=== PATIENT | male | born 1945 | race Caucasian/White ===

== ENCOUNTER 2017-02-25 23:43 | Inpatient (IN) | payer MEDICARE ==
[~2017-02-25] VITALS: Ht 190.5 cm; Wt 93.2 kg
[~2017-02-25 23:43] MED LIST: ASPI-611 PO; ATOR40TA PO; CARV-50 PO; FLUT16SP2 BOTHNARES; LISI2.5T2 PO; MULT-955 PO
[2017-02-26] VITALS (10 sets, daily range): BP systolic 109–123; BP diastolic 44–65
[2017-02-26] MEDS ORDERED: aspirin 81mg tab.chew PO ONE (00:45)
[2017-02-26] MEDS ORDERED: LORazepam 1 MG tablet PO PRN (02:10)
[2017-02-26] MEDS ORDERED: acetaminophen 325mg tablet PO PRN ×2 (02:10)
[2017-02-26] MEDS ORDERED: magnesium hydroxide 30ml (MOM) UD suspension PO PRN (02:10)
[2017-02-26] MEDS ORDERED: LORazepam 2 mg/ml vial IV PRN (02:10)
[2017-02-26] MEDS ORDERED: mag hydrox/Alum hydrox/simeth 30ml oral suspension PO PRN (02:10)
[2017-02-26] MEDS ORDERED: ondansetron/PF 4mg/2ml inj IV PRN (02:10)
[2017-02-26] MEDS ORDERED: thiamine inj. 100 MG in normal saline 100ml IV soln 100 ML IV ONE (02:10)
[2017-02-26] MEDS ORDERED: thiamine 100mg/ml 2ml inj. IV ONE (03:30)
[2017-02-26 07:24] LABS: BASOPHILS % (AUTO) 0.4 % (0-1); EOSINOPHILS # (AUTO) 0.1 X10'3 (0-0.9); EOSINOPHILS % (AUTO) 0.8 % (0-6); HEMATOCRIT 37.3 % (42.0-52.0); HEMOGLOBIN 12.6 g/dl (14.0-17.9); LYMPHOCYTES # (AUTO) 1.5 X10'3 (1.1-4.8); MEAN CORPUSCULAR HEMOGLOBIN 32.1 PG (27.0-31.0); MEAN CORPUSCULAR HGB CONC 33.9 % (33.0-36.5); MEAN CORPUSCULAR VOLUME 94.8 FL (78-98); MONOCYTES # (AUTO) 0.9 X10'3 (0-0.9); MONOCYTES % (AUTO) 11.8 % (2-12); NEUTROPHILS # (AUTO) 5.5 X10'3 (1.8-7.7); PLATELET COUNT 141 X10'3 (140-440); RED BLOOD COUNT 3.93 X10'6 (4.70-6.10); RED CELL DISTRIBUTION WIDTH 12.8 % (11.5-14.5); WHITE BLOOD COUNT 8.1 X10'3 (4.5-11.0)
[2017-02-26 07:46] LABS: ALBUMIN 3.7 G/DL (3.4-5.0); ANION GAP 9 (8-16); BLOOD UREA NITROGEN 23 MG/DL (7-18); BUN/CREATININE RATIO 21.9 (5.4-32.0); CALCIUM 8.6 MG/DL (8.5-10.1); CHLORIDE 104 MMOL/L (99-107); CREATININE 1.05 MG/DL (0.60-1.10); GLUCOSE 74 MG/DL (70-104); POTASSIUM 3.9 MMOL/L (3.5-5.1); SODIUM 142 MMOL/L (135-145); TOTAL CARBON DIOXIDE 28.6 MMOL/L (24-32); eGFR 69 ML/MIN
[2017-02-26] MEDS ORDERED: multivitamins, therapeutics tablet PO SCH (08:00)
[2017-02-26] MEDS ORDERED: folic acid 1mg tablet PO SCH (08:00)
[2017-02-26] MEDS ORDERED: enoxaparin 60mg/0.6ml syringe SUBCUT SCH (08:00)
[2017-02-26] MEDS ORDERED: enoxaparin 30mg/0.3ml syringe SUBCUT SCH (08:00)
[2017-02-26] MEDS ORDERED: enoxaparin 40mg/0.4ml syringe SUBCUT SCH (08:00)
[2017-02-26] MEDS ORDERED: thiamine 100mg tablet PO SCH (08:00)
[2017-02-26] MEDS ORDERED: metoprolol tartrate 1mg/ml inj IV PRN (08:30)
[2017-02-26] MEDS ORDERED: nitroGLYCERIN 0.4mg SUBLingual tab SL PRN (08:30)
[2017-02-26] MEDS ORDERED: aminophylline 250mg/10ml inj. IV PRN (08:30)
[2017-02-26] MEDS ORDERED: regadenoson 0.4mg/5ml syringe IV ONE ×2 (08:30→12:24)
[2017-02-26] MEDS ORDERED: carVEDilol 12.5mg tablet PO SCH ×2 (09:23→20:00)
[2017-02-26] MEDS ORDERED: aminophylline inj. 0 ML IV ONE (12:24)
[2017-02-26] MEDS ORDERED: NITR0.4T51 SL (16:52)
[2017-02-26] MEDS ORDERED: lisinopril 2.5mg tablet PO SCH (21:00)
[2017-02-26] MEDS ORDERED: atorvastatin 20mg tablet PO SCH (21:00)
[2017-02-27] MEDS ORDERED: non-formulary drug (Multivitamin (Daily Value) 1 TAB) PO SCH (08:00)
== END 2017-02-26 17:15 | disposition home or self-care (01) | DRG 291 ==
LOC: ER 23:44 → ED HOLD 02-26 02:07 → PCU 3S 02-26 11:50
PROVIDERS: ADMIT Internal Medicine; ATTEND Family Medicine
PROC: 4A02XM4 Measurement of Cardiac Total Activity, External Approach (ICD-10-PCS; principal; 2017-02-26)
PROC: 3E073KZ Introduction of Other Diagnostic Substance into Coronary Artery, Percutaneous Approach (ICD-10-PCS; 2017-02-26)
DX: I11.0 Hypertensive heart disease with heart failure (principal); J96.01 Acute respiratory failure with hypoxia; E87.2 Acidosis; I24.9 Acute ischemic heart disease, unspecified; I50.23 Acute on chronic systolic (congestive) heart failure; J70.5 Respiratory conditions due to smoke inhalation; T59.811A Toxic effect of smoke, accidental (unintentional), initial encounter; E78.00 Pure hypercholesterolemia, unspecified; E78.5 Hyperlipidemia, unspecified; F17.210 Nicotine dependence, cigarettes, uncomplicated; F10.10 Alcohol abuse, uncomplicated; I25.2 Old myocardial infarction; Z79.899 Other long term (current) drug therapy; Z79.82 Long term (current) use of aspirin; Z85.038 Personal history of other malignant neoplasm of large intestine; Y93.89 Activity, other specified; Y99.8 Other external cause status; Y92.090 Kitchen in other non-institutional residence as the place of occurrence of the external cause; Z71.6 Tobacco abuse counseling
CPT/HCPCS: 36415; 78452; 80048; 83880; 84484; 85025; 93005; 93017; 93306; 99285; A9500; J0280; J1650; J3411

== ENCOUNTER 2017-05-30 20:13 | Inpatient (IN) | payer MEDICARE ==
[~2017-05-30] VITALS: Ht 190.5 cm; Wt 100.0 kg
[~2017-05-30 20:13] MED LIST changes: +NITR0.4T51 SL
[2017-05-30] MEDS ORDERED: methylPREDNISolone sod succ 125mg/2ml vial IV ONE (20:25)
[2017-05-30] MEDS ORDERED: albuterol 2.5 MG/3 ML nebule CONTNEB PRN (20:25)
[2017-05-30] MEDS ORDERED: albuterol 2.5 MG/3 ML nebule ONE (20:27)
[2017-05-30 20:51] LABS: ABG BASE EXCESS -2.3 mmol/L (-2.0-3.0); ABG HCO3 26.4 mmol/L (22.0-26.0); ABG OXYGEN SATURATION 96.6 % (95-98); ABG PCO2 (T) 57.7 mmHg (35.0-48.0); ABG PH (T) 7.269 (7.350-7.450); ABG PO2 (T) 94.6 mmHg (83-108); ALLEN'S TEST Positive; FCOHb 1.5 % (0.5-1.5); FLOW 7 L/min; FMetHb 0.2 % (0.3-1.12); PATIENT TEMPERATURE 35.4; RESPIRATORY RATE (OBSERVED) 20 b/min; TOTAL HEMOGLOBIN 15.2 G/dl (14.0-18.0)
[2017-05-30 20:53] LABS: BASOPHILS % (AUTO) 0.2 % (0-1); EOSINOPHILS # (AUTO) 0.1 X10'3 (0-0.9); EOSINOPHILS % (AUTO) 0.3 % (0-6); HEMATOCRIT 43.5 % (42.0-52.0); HEMOGLOBIN 14.7 g/dl (14.0-17.9); LYMPHOCYTES # (AUTO) 0.9 X10'3 (1.1-4.8); LYMPHOCYTES % (AUTO) 5.8 % (21-51); MEAN CORPUSCULAR HEMOGLOBIN 32.5 PG (27.0-31.0); MEAN CORPUSCULAR HGB CONC 33.8 % (33.0-36.5); MEAN CORPUSCULAR VOLUME 95.9 FL (78-98); MEAN PLATELET VOLUME 8.2 FL (7.4-10.4); MONOCYTES # (AUTO) 0.8 X10'3 (0-0.9); MONOCYTES % (AUTO) 4.9 % (2-12); NEUTROPHILS # (AUTO) 14.4 X10'3 (1.8-7.7); NEUTROPHILS % (AUTO) 88.8 % (42-75); PLATELET COUNT 166 X10'3 (140-440); RED BLOOD COUNT 4.54 X10'6 (4.70-6.10); RED CELL DISTRIBUTION WIDTH 12.7 % (11.5-14.5); WHITE BLOOD COUNT 16.2 X10'3 (4.5-11.0)
[2017-05-30 21:02] LABS: PARTIAL THROMBOPLASTIN TIME 23 SECONDS (22-32); PROTHROMBIN TIME 10.3 SECONDS (9.0-12.0)
[2017-05-30 21:15] LABS: ALANINE AMINOTRANSFERASE 40 U/L (12-78); ALBUMIN 4.1 G/DL (3.4-5.0); ALBUMIN/GLOBULIN RATIO 1.2 (1.1-1.5); ALKALINE PHOSPHATASE 63 IU/L (46-116); ANION GAP 8 (8-16); ASPARTATE AMINO TRANSFERASE 34 U/L (10-37); BILIRUBIN,TOTAL 1.1 MG/DL (0.1-1.0); BLOOD UREA NITROGEN 24 MG/DL (7-18); BUN/CREATININE RATIO 17.9 (5.4-32.0); CHLORIDE 104 MMOL/L (99-107); CREATINE KINASE 175 U/L (39-308); CREATININE 1.34 MG/DL (0.60-1.10); GLUCOSE 147 MG/DL (70-104); MAGNESIUM 2.5 MG/DL (1.5-2.4); PHOSPHORUS 7.8 MG/DL (2.3-4.5); POTASSIUM 5.5 MMOL/L (3.5-5.1); SODIUM 142 MMOL/L (135-145); TOTAL CARBON DIOXIDE 30.4 MMOL/L (24-32); TOTAL PROTEIN 7.4 G/DL (6.4-8.2); eGFR 52 ML/MIN
[2017-05-30 22:26] LABS: ALBUMIN 3.9 G/DL (3.4-5.0); ANION GAP 7 (8-16); BLOOD UREA NITROGEN 24 MG/DL (7-18); BUN/CREATININE RATIO 18.5 (5.4-32.0); CHLORIDE 106 MMOL/L (99-107); GLUCOSE 92 MG/DL (70-104); POTASSIUM 5.5 MMOL/L (3.5-5.1); SODIUM 143 MMOL/L (135-145); TOTAL CARBON DIOXIDE 30.4 MMOL/L (24-32); eGFR 54 ML/MIN
[2017-05-30] MEDS ORDERED: acetaminophen 325mg tablet PO PRN (23:10)
[2017-05-30] MEDS ORDERED: ondansetron/PF 4mg/2ml inj IV PRN (23:10)
[2017-05-30] MEDS ORDERED: ipratropium/albuterol 3ml nebule NEB PRN (23:20)
[2017-05-30] MEDS: furosemide 10 MG/1 ML 10ml inj IV SCH (23:47)
[2017-05-30] MEDS: heparin, porcine 5000 units/ml vial SQ SCH (23:47)
[2017-05-31 01:18] LABS: CLARITY,URINE CLEAR (Clear); COLOR,URINE YELLOW (Yellow); GLUCOSE, URINE NEGATIVE (Neg); KETONES,URINE TRACE mg/dl (Neg); LEUKOCYTE ESTERASE ,URINE NEGATIVE (Neg); NITRITES, URINE NEGATIVE (Neg); OCCULT BLOOD,URINE TRACE-LYSED (Neg); PH,URINE 5.5 (4.8-8.0); PROTEIN,URINE TRACE mg/dl (Neg); UROBILINOGEN,URINE 0.2 E.U/dL (0.2-1.0)
[2017-05-31 01:19] LABS: UA COLLECTION TYPE VOIDED
[2017-05-31 01:26] LABS: BACTERIA,URINE NONE SEEN /HPF (Neg); HYALINE CASTS 0-3 /LPF (NEGATIVE); RBC,URINE 0-2 /HPF (0-2); SQUAMOUS EPITHELIAL CELL,UR NONE SEEN /LPF (FEW); WBC,URINE 0-4 /HPF (0-4)
[2017-05-31 03:23] LABS: BASOPHILS # (AUTO) 0.1 X10'3 (0-0.2); BASOPHILS % (AUTO) 0.6 % (0-1); EOSINOPHILS # (AUTO) 0.2 X10'3 (0-0.9); EOSINOPHILS % (AUTO) 1.7 % (0-6); HEMATOCRIT 41.3 % (42.0-52.0); HEMOGLOBIN 14.3 g/dl (14.0-17.9); LYMPHOCYTES # (AUTO) 0.5 X10'3 (1.1-4.8); LYMPHOCYTES % (AUTO) 6.2 % (21-51); MEAN CORPUSCULAR HEMOGLOBIN 32.9 PG (27.0-31.0); MEAN CORPUSCULAR HGB CONC 34.7 % (33.0-36.5); MEAN CORPUSCULAR VOLUME 94.7 FL (78-98); MEAN PLATELET VOLUME 8.3 FL (7.4-10.4); MONOCYTES # (AUTO) 0.1 X10'3 (0-0.9); MONOCYTES % (AUTO) 1.2 % (2-12); NEUTROPHILS # (AUTO) 7.9 X10'3 (1.8-7.7); NEUTROPHILS % (AUTO) 90.3 % (42-75); PLATELET COUNT 139 X10'3 (140-440); RED BLOOD COUNT 4.36 X10'6 (4.70-6.10); RED CELL DISTRIBUTION WIDTH 12.5 % (11.5-14.5); WHITE BLOOD COUNT 8.7 X10'3 (4.5-11.0)
[2017-05-31 03:38] LABS: ALBUMIN 3.9 G/DL (3.4-5.0); ANION GAP 13 (8-16); BLOOD UREA NITROGEN 25 MG/DL (7-18); BUN/CREATININE RATIO 24.5 (5.4-32.0); CHLORIDE 102 MMOL/L (99-107); CHOL/HDL RATIO 2.5 (0.00-4.99); CHOLESTEROL 146 MG/DL (0-200); CREATININE 1.02 MG/DL (0.60-1.10); GLUCOSE 111 MG/DL (70-104); HDL CHOLESTEROL 59 MG/DL (35-60); LDL CHOLESTEROL 76 MG/DL (50-100); MAGNESIUM 2.3 MG/DL (1.5-2.4); PHOSPHORUS 3.3 MG/DL (2.3-4.5); SODIUM 140 MMOL/L (135-145); TOTAL CARBON DIOXIDE 25.2 MMOL/L (24-32); TRIGLYCERIDES 33 MG/DL (20-135); eGFR 72 ML/MIN
[2017-05-31 03:50] LABS: CALCIUM 9.2 MG/DL (8.5-10.1); POTASSIUM 4.4 MMOL/L (3.5-5.1)
[2017-05-31] MEDS ORDERED: fluticasone nasal spray 16GM bottle NS PRN (08:00)
[2017-05-31] MEDS: atorvastatin 20mg tablet PO SCH (08:04)
[2017-05-31] MEDS: furosemide 10 MG/1 ML 10ml inj IV SCH (08:05)
[2017-05-31] MEDS: carVEDilol 12.5mg tablet PO SCH ×2 (08:05→20:59)
[2017-05-31] MEDS: heparin, porcine 5000 units/ml vial SQ SCH ×2 (08:06→17:21)
[2017-05-31] MEDS ORDERED: levoFLOXACIN-Levaquin 750MG/D5 150 ML IV STA (12:07)
[2017-05-31] MEDS ORDERED: ipratropium/albuterol 3ml nebule NEB PRN (12:10)
[2017-05-31] MEDS ORDERED: normal saline 1000ml 1,000 ML IV ONE (12:10)
[2017-05-31] MEDS: normal saline 1000ml 1,000 ML IV SCH (12:34)
[2017-05-31 13:36] VITALS: BP 106/44
[2017-05-31 14:35] VITALS: BP 108/44
[2017-05-31 15:36] VITALS: BP 106/44
[2017-05-31 16:24] VITALS: BP 102/46
[2017-05-31] MEDS: ipratropium/albuterol 3ml nebule NEB SCH ×2 (17:10→20:00)
[2017-05-31] MEDS: methylPREDNISolone sod succ 125mg/2ml vial IV SCH (17:19)
[2017-05-31 18:00] VITALS: BP 105/50
[2017-05-31] MEDS: furosemide 40mg/4ml inj IV SCH (20:00)
[2017-05-31] MEDS ORDERED: lisinopril 2.5mg tablet PO SCH (21:00)
[2017-05-31] MEDS ORDERED: non-formulary drug (Aspirin (Aspir 81) 1 TAB) PO SCH (21:00)
[2017-05-31 22:00] VITALS: BP 101/51
[2017-06-01] MEDS: methylPREDNISolone sod succ 125mg/2ml vial IV SCH ×2 (01:12→08:00)
[2017-06-01 02:00] VITALS: BP 102/68
[2017-06-01] MEDS: ipratropium/albuterol 3ml nebule NEB SCH ×3 (04:00→08:00)
[2017-06-01 06:00] VITALS: BP 91/47
[2017-06-01 06:10] LABS: BASOPHILS % (AUTO) 0 % (0-1); EOSINOPHILS % (AUTO) 0 % (0-6); HEMATOCRIT 37.3 % (42.0-52.0); HEMOGLOBIN 12.7 g/dl (14.0-17.9); LYMPHOCYTES # (AUTO) 0.6 X10'3 (1.1-4.8); LYMPHOCYTES % (AUTO) 5.2 % (21-51); MEAN CORPUSCULAR HEMOGLOBIN 32.5 PG (27.0-31.0); MEAN CORPUSCULAR HGB CONC 33.9 % (33.0-36.5); MEAN CORPUSCULAR VOLUME 95.9 FL (78-98); MEAN PLATELET VOLUME 8.9 FL (7.4-10.4); MONOCYTES # (AUTO) 0.3 X10'3 (0-0.9); MONOCYTES % (AUTO) 2.6 % (2-12); NEUTROPHILS % (AUTO) 92.2 % (42-75); PLATELET COUNT 135 X10'3 (140-440); RED BLOOD COUNT 3.89 X10'6 (4.70-6.10); RED CELL DISTRIBUTION WIDTH 12.9 % (11.5-14.5); WHITE BLOOD COUNT 10.9 X10'3 (4.5-11.0)
[2017-06-01 06:39] LABS: ALBUMIN 3.5 G/DL (3.4-5.0); ANION GAP 9 (8-16); BLOOD UREA NITROGEN 31 MG/DL (7-18); BUN/CREATININE RATIO 29.5 (5.4-32.0); CALCIUM 8.8 MG/DL (8.5-10.1); CHLORIDE 104 MMOL/L (99-107); CREATININE 1.05 MG/DL (0.60-1.10); GLUCOSE 143 MG/DL (70-104); MAGNESIUM 2.1 MG/DL (1.5-2.4); PHOSPHORUS 3.1 MG/DL (2.3-4.5); POTASSIUM 4.4 MMOL/L (3.5-5.1); SODIUM 142 MMOL/L (135-145); TOTAL CARBON DIOXIDE 28.7 MMOL/L (24-32); eGFR 69 ML/MIN
[2017-06-01] MEDS ORDERED: levoFLOXACIN-Levaquin 750MG/D5 150 ML IV SCH (08:00)
[2017-06-01] MEDS: carVEDilol 12.5mg tablet PO SCH (08:00)
[2017-06-01] MEDS: atorvastatin 20mg tablet PO SCH (08:00)
[2017-06-01] MEDS: heparin, porcine 5000 units/ml vial SQ SCH ×2 (08:00)
[2017-06-01] MEDS: furosemide 40mg/4ml inj IV SCH (08:00)
[2017-06-01] MEDS: normal saline 1000ml 1,000 ML IV SCH (08:10)
== END 2017-06-01 08:45 | disposition left against medical advice (07) | DRG 291 ==
LOC: ER 20:14 → ED HOLD 23:10 → S STAY 05-31 13:58 → PCU 3S 05-31 16:39
PROVIDERS: ADMIT Family Medicine; ATTEND Family Medicine
PROC: 5A09357 Assistance with Respiratory Ventilation, Less than 24 Consecutive Hours, Continuous Positive Airway Pressure (ICD-10-PCS; principal; 2017-05-30)
DX: I11.0 Hypertensive heart disease with heart failure (principal); J96.90 Respiratory failure, unspecified, unspecified whether with hypoxia or hypercapnia; E87.2 Acidosis; J44.1 Chronic obstructive pulmonary disease with (acute) exacerbation; N28.9 Disorder of kidney and ureter, unspecified; I50.23 Acute on chronic systolic (congestive) heart failure; E78.5 Hyperlipidemia, unspecified; E87.5 Hyperkalemia; R74.8 Abnormal levels of other serum enzymes; Z53.21 Procedure and treatment not carried out due to patient leaving prior to being seen by health care provider; F17.210 Nicotine dependence, cigarettes, uncomplicated; I25.2 Old myocardial infarction; Z79.899 Other long term (current) drug therapy; Z79.82 Long term (current) use of aspirin; Z85.038 Personal history of other malignant neoplasm of large intestine; Z71.6 Tobacco abuse counseling
CPT/HCPCS: 36415; 36600; 71045; 80048; 80053; 80061; 81001; 82550; 82803; 83605; 83735; 83880; 84100; 84484; 85018; 85025; 85610; 85730; 87040; 87070; 93005; 94640; 94660; 94760; 96374; 99285; J1644; J1940; J1956; J2930; J7030